=== PATIENT | female | born 1960 | race Caucasian/White ===

== ENCOUNTER 2018-04-13 13:57 | Observation (INO) | payer MEDICAID, OTHER ==
[2018-04-13 15:18] LABS: CKMB 0.6 ng/mL (0-6.6); Troponin I Less than 0.010 ng/mL (< 0.028)
[2018-04-13] MEDS ORDERED: Nitroglycerin 2% Ointment 1 INCH/1 GM Packet ONE (15:47)
[2018-04-13] MEDS ORDERED: Lorazepam 2 MG/ML VIAL ONE (15:47)
[2018-04-13] MEDS ORDERED: Bisacodyl 5 MG TAB PO PRN (16:18)
[2018-04-13] MEDS ORDERED: Acetaminophen 650 MG Suppository PR PRN (16:18)
[2018-04-13] MEDS ORDERED: Melatonin 3 MG TAB PO PRN (16:27)
[2018-04-13 18:10] VITALS: BMI 31.9
--- NOTE | 2018-04-13 18:20 | HP ---
DATE OF ADMISSION: 04/13/2018 PRIMARY CARE PHYSICIAN: Zeynep Wagner. CHIEF COMPLAINT: Chest pain. HISTORY OF PRESENT ILLNESS: Ms. Knapp is a pleasant 57-year-old lady who was seen at [facility] on 04/13/2018 following transfer from emergency room at [place]. She reports that she has a history of anxiety disorder. She appears to have been treated with temaze michelle and olanzapine. Two weeks ago, she quit smoking as well as stopped her medications suddenly. Prior to that, she was smoking 1-1/2 packs of cigarettes a day. Over the last 5-8 days, she has been feeling sweaty as well as cold. She has also been feeling anxious. Today morning, she started having chest pain. She kaylie cribes the pain as retrosternal, sharp, 6/10, radiating to right shoulder and to the back, accompanie d by nausea, shortness of breath and lightheadedness. She denies any cough, fevers or chills. She d enies any abdominal pain. She also reportedly was hearing voices. She reports that she has been hearing voices, which she attr ibutes to God over the last 5-7 days. She reports that after she went to the emergency room and they gave her some medication, the voice has stopped. She also reportedly had suicidal ideation today mo rning, but she denies it now. She denies having any suicide plan. REVIEW OF SYSTEMS: All other systems reviewed and found to be negative. PAST MEDICAL HISTORY: Chronic back pain and dyslipidemia. PAST SURGICAL HISTORY: Hysterectomy and right leg surgery. PSYCHIATRIC HISTORY: Anxiety and depression. SOCIAL HISTORY: Patient denies tobacco use at this time. About 2 weeks ago, she was smoking 1-1/2 p acks of cigarettes a day. She denies recreational drug use or alcohol use. FAMILY HISTORY: Father with a history of coronary artery bypass graft and strokes. ALLERGIES: CODEINE. CURRENT MEDICATIONS: None. PHYSICAL EXAMINATION: GENERAL: Ms. Knapp is awake and alert, not in acute distress. She is afebrile. Blood pressure is 130/75, pulse 79, respiratory rate 18, and oxygen saturation 95% on room air. EYES: No scleral icterus. No conjunctival pallor. ENT: Moist mucous membranes, no oropharyngeal erythema or exudates. NECK: Supple, nontender. Trachea is midline. RESPIRATORY: Accessory muscles of breathing are not active. Chest wall movements are symmetric bila terally. LUNGS: Clear to auscultation, without wheeze, rhonchi or crepitations. CARDIOVASCULAR: S1 and S2 are heard, regular. Peripheral pulses palpable. No carotid bruits. No p ericardial rub. ABDOMEN: Soft, nontender, bowel sounds heard, no hepatomegaly, no splenomegaly. NEUROLOGIC: Cranial nerves II-XII intact, deep tendon reflexes 2+. MUSCULOSKELETAL: Power is 5/5 in all 4 extremities. SKIN: No rashes or subcutaneous nodules. LYMPHATIC: No cervical lymphadenopathy. PSYCHIATRIC: Normal mood, normal affect, patient is oriented to person, place, and time. LABORATORY DATA: Ms. Knapp' labs and investigations were reviewed. I reviewed her electrocardiogr am, which shows normal sinus rhythm, no ST changes to suggest an acute coronary syndrome. I also rev iewed a chest x-ray, which does not show any pulmonary infiltrates. She has normal sodium, normal po tassium, normal creatinine, normal liver profile, mildly elevated calcium of 10.8, urinalysis that is positive for large amount of leukocyte esterase, negative for nitrite and has trace ketones and trac e blood. ASSESSMENT AND PLAN: Ms. Knapp is a pleasant 57-year-old lady who was seen at [facility] on 04/13/2018 following transfer from [place]. Her problem list includes: 1. 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 Further management depend ing on the outcome of this test. 2. Urinary tract infection. She will be started on empiric antibiotics and urine cultures will be s ent. 3. Depression: [facility] will be consulted and patient is medically cleared to help with further managem ent. 4. Dyslipidemia: She reports that she has diet-controlled dyslipidemia. She will be advised to fol low up with her primary care provider for management of dyslipidemia. Many thanks for allowing me to participate in your patient's care. Please feel free to contact me wi th any questions or concerns. LEVEL OF RISK: High. LEVEL OF COMPLEXITY: High.
[2018-04-13] MEDS: cefTRIAXone\\ROCEPHIN 1 GM in Sodium Chloride 0.9% 100 ML IVPB SCH (18:42)
[2018-04-13 19:04] LABS: Troponin I Less than 0.010 ng/mL (< 0.028)
[2018-04-13] MEDS: Acetaminophen 325 MG TAB PO PRN (20:14)
[2018-04-13] MEDS: ALPRAZolam 0.25 MG TAB PO PRN (21:25)
[2018-04-13] MEDS ORDERED: Aspirin 325 MG TAB PO SCH (21:30)
[2018-04-13] MEDS ORDERED: Temazepam 15 MG CAP PO SCH (22:45)
[2018-04-14 04:34] LABS: #Basophils 0.1 thou/uL (0.0-0.2); #Eosinphils 0.2 thou/uL (0.0-0.7); #Lymphocytes 4.6 thou/uL (1.20-3.40); #Monocytes 0.8 thou/uL (0.11-0.59); #Neutrophils 4.7 thou/uL (1.40-6.50); %Eosinophils 2.1 % (0.0-10.0); %Lymphocytes 44.4 % (21.0-51.0); %Monocytes 7.3 % (0.0-10.0); %Neutrophils 45.2 % (42.0-75.0); Hemoglobin 16.5 g/dL (12.0-16.0); Mean Corpuscular HGB CONC 33.8 g/dL (32.0-36.0); Mean Corpuscular Hemoglobin 32.4 pg (27.0-31.0); Mean Corpuscular Volume 95.9 fL (78.0-98.0); Mean Platelet Volume 10.5 fL (7.4-10.4); Platelet Count 163 thou/uL (130-400); RBC Distribution Width 11.7 % (11.5-14.5); White Blood Cell (WBC) Count 10.4 thou/uL (4.8-10.8)
[2018-04-14] MEDS: Acetaminophen 325 MG TAB PO PRN (04:45)
[2018-04-14 04:55] LABS: Anion Gap 17 mmol/L (10-20); BUN (Urea Nitrogen) 13 mg/dL (9.8-20.1); Calc. Creatinine Clearance 93 mL/min (70-130); Calcium 9.3 mg/dL (7.8-10.44); Carbon Dioxide 17 mmol/L (22-29); Chloride 106 mmol/L (98-107); Estimated GFR-MDRD 72; Glucose 95 mg/dL (70-105); Potassium 3.6 mmol/L (3.5-5.1); Sodium 136 mmol/L (136-145)
[2018-04-14 04:58] LABS: Troponin I Less than 0.010 ng/mL (< 0.028)
[2018-04-14] MEDS: Enoxaparin Sodium 40 MG/0.4 ML SYRINGE SC SCH (07:47)
[2018-04-14] MEDS: ALPRAZolam 0.25 MG TAB PO PRN (07:47)
[2018-04-14] MEDS ORDERED: Aspirin 325 MG TAB PO SCH (09:00)
[2018-04-14] MEDS ORDERED: ALPRAZolam 0.5 MG TAB PO SCH (13:45)
--- NOTE | 2018-04-14 16:26 | NM ---
NUCLEAR MEDICINE PERFUSION EXAMINATION 04/14/18 HISTORY: 57-year-old female with chest pain. TECHNIQUE: A rest only examination was performed. The patient refused to do the stress portion of the exam after the rest portion was complete. FINDINGS: A rest only nuclear medicine cardiac perfusion examination was performed using 9 millicuries of techn etium 99m Sestamibi. FINDINGS: No perfusion defects are seen with rest. IMPRESSION: No perfusion defects seen with rest. POS: MERRILL
--- NOTE | 2018-04-14 16:46 | PDOC.PN ---
- Subjective Encounter Start Date: 04/14/18 Encounter Start Time: 16:44 Pt seen for followup re: chest pain. Denies chest pain at this time. No shortness of breath, fevers or chills. - Objective MAR Reviewed: Yes Vital Signs & Weight: Vital Signs (12 hours) Temp Pulse Resp BP Pulse Ox 04/14/18 15:48 97.8 F 72 14 107/82 93 L 04/14/18 11:41 98.8 F 75 14 98/80 96 04/14/18 08:10 97.7 F 85 16 04/14/18 07:52 97.7 F 85 16 101/70 96 Weight Weight 174 lb 9.6 oz I&O: 04/13/18 04/14/18 04/15/18 06:59 06:59 06:59 Intake Total 630 Balance 630 Result Diagrams: 04/14/18 03:54 04/14/18 03:54 EKG Reviewed by me: Yes (Tele: NSR) Phys Exam - Physical Examination Constitutional: NAD HEENT: moist MMs, sclera anicteric, oral pharynx no lesions, 2+ tonsils Neck: no nodes, no JVD, supple, full ROM Respiratory: no wheezing, no rales, no rhonchi, clear to auscultation bilateral Cardiovascular: RRR, no rub S1, S2 Gastrointestinal: soft, non-tender, no distention, positive bowel sounds Neurological: moves all 4 limbs Psychiatric: normal affect Deviation from normal: Oriented to person and place, not to time Dx/Plan (1) Chest pain Code(s): R07.9 - CHEST PAIN, UNSPECIFIED Status: Acute Comment: pt refused to have nuclear stress test, wants treadmill EKG stress test, even though it may limit the value of findings. Had a lengthy discussion with patient and explained risks vs. benefits to both forms of testing. (2) Hallucinations Code(s): R44.3 - HALLUCINATIONS, UNSPECIFIED Status: Acute Comment: For [facility] eval when medically stable (3) Suicidal ideation Code(s): R45.851 - SUICIDAL IDEATIONS Status: Acute Comment: For [facility] eval when medically stable (4) Depression Code(s): F32.9 - MAJOR DEPRESSIVE DISORDER, SINGLE EPISODE, UNSPECIFIED Status : Chronic Comment: For [facility] eval when medically stable (5) UTI (urinary tract infection) Status: Suspected Comment: continue IV ceftriaxone, await urine cultures - Plan * . Review of Systems - Review of Systems Constitutional: negative: fever, chills, sweats, weakness, malaise Respiratory: negative: Cough, Shortness of Breath, SOB with Excertion, Pleuritic Pain, Wheezing Cardiovascular: negative: chest pain, palpitations, orthopnea, paroxysmal nocturnal dyspnea, edema, light headedness Gastrointestinal: negative: Nausea, Abdominal Pain, Constipation, Melena, Hematochezia Genitourinary: negative: Dysuria, Frequency, Incontinence, Hematuria, Retention Skin: negative: Rash, Lesions, Henri, Bruising - Medications/Allergies Allergies/Adverse Reactions: Allergies Allergy/AdvReac Type Severity Reaction Status Date / Time aspirin Allergy Verified 04/14/18 07:50 codeine Allergy Verified 04/13/18 18:16 Medications: Current Medications Acetaminophen (Tylenol) 650 mg PO Q4H PRN PRN Reason: Headache/Fever or Pain Last Admin: 04/14/18 04:45 Dose: 650 mg Acetaminophen (Tylenol) 650 mg UT Q4H PRN PRN Reason: Headache/Fever or Pain Alprazolam (Xanax) 0.25 mg PO BIDPRN PRN PRN Reason: Anxiety Last Admin: 04/14/18 07:47 Dose: 0.25 mg Aspirin (Aspirin) 325 mg PO DAILY [facility] Bisacodyl (Dulcolax) 10 mg PO DAILYPRN PRN PRN Reason: Constipation Enoxaparin Sodium (Lovenox) 40 mg SC 0900 [facility] Last Admin: 04/14/18 07:47 Dose: 40 mg Ceftriaxone Sodium 1 gm/ (Sodium Chloride) 100 mls @ 200 mls/hr IVPB Q24HR [facility] Last Admin: 04/13/18 18:42 Dose: 100 mls Melatonin (Melatonin) 3 mg PO HS PRN PRN Reason: Insomnia
[2018-04-14] MEDS: cefTRIAXone\\ROCEPHIN 1 GM in Sodium Chloride 0.9% 100 ML IVPB SCH (17:07)
--- NOTE | 2018-04-14 18:27 | CON ---
DATE OF CONSULTATION: 04/14/2018 HISTORY: Neelam Knapp is a 57-year-old white female with history of chronic anxiety. She apparently stopped smoking 2 weeks ago as well as stopped taking her usual medications. She started to have chest pain yesterday and went to the hospital in [place] and then was transferred here. She refuses to answer any questions in regard to her chest discomfort and essentially does not wish to have me ask her any questions and wishes me to leave. PHYSICAL EXAMINATION: The patient was not examined. IMPRESSION: Chest discomfort with 4 negative cardiac enzymes. She underwent resting portion of the Cardiolite scan, but refused the stress portion today. She also refuses to answer any questions in regard to her chest discomfort. I will sign off. MTDD
[2018-04-14] MEDS ORDERED: Temazepam 15 MG CAP PO SCH (19:00)
[2018-04-14] MEDS: ALPRAZolam 0.5 MG TAB PO PRN (21:03)
[2018-04-15 08:01] VITALS: TEMP 98
[2018-04-15] MEDS ORDERED: Aspirin 325 MG TAB PO SCH (09:00)
[2018-04-15] MEDS: ALPRAZolam 0.5 MG TAB PO PRN (09:20)
[2018-04-15] MEDS: Enoxaparin Sodium 40 MG/0.4 ML SYRINGE SC SCH (09:21)
[2018-04-15 11:52] VITALS: BP 103/73
[2018-04-15] MEDS ORDERED: Nitrofurantoin Monohyd/M-Cryst 100 MG CAP PO SCH (21:00)
--- NOTE | 2018-04-16 00:12 | DIS ---
DATE OF ADMISSION: 04/13/2018 DATE OF DISCHARGE: 04/15/2018 PRIMARY CARE PROVIDER: [facility]. DISCHARGE DIAGNOSES: 1. Chest pain, likely secondary to anxiety. 2. Urinary tract infection. CONDITION OF PATIENT ON THE DAY OF DISCHARGE: Stable. I assessed Ms. Knapp on the day of discharg e. She denies any chest pain at this time. Vital signs are stable. S1 and S2 are heard, regular. Lungs are clear to auscultation bilaterally. CONSULTATIONS DURING THIS HOSPITALIZATION: Cardiology, Dr. Suarez. DISCHARGE MEDICATIONS: Her psychiatric medications will need to be clarified and prescribed by her [facility] provider and by her psychiatrist. I am discharging her on nitrofurantoin 100 mg 2 times a day for 1 week. HOSPITAL COURSE: Ms. Knapp is a pleasant 57-year-old lady who was admitted to [facility] on 04/13/2018 for chest pain, hallucinations and suicidal ideation. She was also found to have evidence of urinary tract infection and started on antibiotics. She went for a nuclear stress test, but refused to have the active portion of the stress test. 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 Eventually, she went on to have a treadmill stress test, which was normal. At the time of this dictation, her final urine cultures are pending. There was no growth at 24 hours . She is advised to follow up with her primary care provider for final report. She was evaluated by [facility], who did not recommend inpatient hospitalization for her psychiatric issues . She is advised to follow up with her primary care provider and with her psychiatric. Many thanks for allowing me to participate in your patient's care. Please feel free to contact me wi th any questions or concerns. DISCHARGE DESTINATION: Home.
== END 2018-04-15 15:35 | disposition home or self-care (01) ==
LOC: ERS 13:57 → 2SE 17:42
PROVIDERS: ADMIT Internal Medicine; ATTEND Internal Medicine
DX: R07.89 Other chest pain (principal); R44.3 Hallucinations, unspecified; R45.851 Suicidal ideations; F32.9 Major depressive disorder, single episode, unspecified; N39.0 Urinary tract infection, site not specified; F17.210 Nicotine dependence, cigarettes, uncomplicated; Z88.6 Allergy status to analgesic agent; Z88.5 Allergy status to narcotic agent; Z79.899 Other long term (current) drug therapy
CPT/HCPCS: 36415; 78451; 80048; 85025; 87086; 93005; 93017; 94760; 96365; 96366; 96372; 96374; 96375; A9500; G0378; J0696; J1650; J2060; J7050